=== PATIENT | male | born 1960 | race Caucasian/White ===

== ENCOUNTER 2016-10-17 09:00 | Outpatient (CLI) | payer BC, OTHER ==
[2016-10-17 09:29] LABS: #Basophils 0.1 thou/uL (0.0-0.2); #Eosinphils 0.2 thou/uL (0.0-0.7); #Lymphocytes 2.7 thou/uL (1.20-3.40); #Monocytes 0.6 thou/uL (0.11-0.59); #Neutrophils 5.1 thou/uL (1.40-6.50); %Basophils 1.5 % (0.0-1.0); %Eosinophils 2.6 % (0.0-10.0); %Lymphocytes 30.7 % (21.0-51.0); %Monocytes 6.8 % (0.0-10.0); %Neutrophils 58.4 % (42.0-75.0); Hemoglobin 15.3 g/dL (14.0-18.0); Mean Corpuscular HGB CONC 34.5 g/dL (32.0-36.0); Mean Corpuscular Hemoglobin 33.5 pg (27.0-31.0); Mean Platelet Volume 6.4 fL (7.4-10.4); Platelet Count 258 thou/uL (130-400); Red Blood Cell (RBC) Count 4.58 mill/uL (4.70-6.10); White Blood Cell (WBC) Count 8.8 thou/uL (4.8-10.8)
[2016-10-17 09:42] LABS: ALT (SGPT) 33 U/L (8-55); AST (SGOT) 26 U/L (5-34); Albumin 4.5 g/dL (3.5-5.0); Alkaline Phosphatase 41 U/L (40-150); Anion Gap 16 mmol/L (10-20); BUN (Urea Nitrogen) 13 mg/dL (8.4-25.7); Bilirubin, Total 0.5 mg/dL (0.2-1.2); Calc. Creatinine Clearance 0 mL/min (70-130); Calcium 9.3 mg/dL (7.8-10.44); Carbon Dioxide 24 mmol/L (22-29); Cardiac Risk 7.9 (Less than 4.5); Chloride 103 mmol/L (98-107); Cholesterol 212 mg/dl (< 200 Desired); Estimated GFR-MDRD 89; Globulin 2.9 g/dL (2.4-3.5); Glucose 101 mg/dL (70-105); HDL Cholesterol 27 mg/dL (>60 Neg Risk); Potassium 4.1 mmol/L (3.5-5.1); Protein, Total 7.4 g/dL (6.0-8.3); Sodium 139 mmol/L (136-145); Triglycerides 809 mg/dL (Less than 150)
[2016-10-17 17:26] LABS: Albumin (w/Testosterone Panel) 4.6 g/dL
[2016-10-17 17:51] LABS: Sex Hormone Binding Globulin 25.2 nmol/L (11-78); Testosterone, Free 67.6 pg/mL (47-244); Testosterone, Total 307.1 ng/dL (221-716)
== END 2016-10-17 09:01 ==
LOC: MADLABBHPM 09:00
PROVIDERS: ATTEND Family Medicine
DX: E78.5 Hyperlipidemia, unspecified (principal); N52.9 Male erectile dysfunction, unspecified; I10 Essential (primary) hypertension
CPT/HCPCS: 36415; 80053; 80061; 84270; 84403; 85025

== ENCOUNTER 2019-10-21 11:09 | Outpatient (CLI) | payer SELFPAY ==
[2019-10-21 11:58] LABS: #Basophils 0.1 thou/uL (0.0-0.2); #Eosinphils 0.3 thou/uL (0.0-0.7); #Lymphocytes 2.5 thou/uL (1.20-3.40); #Monocytes 0.5 thou/uL (0.11-0.59); #Neutrophils 3.4 thou/uL (1.40-6.50); %Eosinophils 4.1 % (0.0-10.0); %Monocytes 6.8 % (0.0-10.0); %Neutrophils 50.1 % (42.0-75.0); Hemoglobin 14.5 g/dL (14.0-18.0); Mean Corpuscular HGB CONC 32.1 g/dL (32.0-36.0); Mean Corpuscular Hemoglobin 31.2 pg (27.0-31.0); Mean Corpuscular Volume 97.2 fL (78.0-98.0); Mean Platelet Volume 6.8 fL (7.4-10.4); Platelet Count 318 thou/uL (130-400); RBC Distribution Width 11.7 % (11.5-14.5); Red Blood Cell (RBC) Count 4.66 mill/uL (4.70-6.10); White Blood Cell (WBC) Count 6.8 thou/uL (4.8-10.8)
[2019-10-21 12:41] LABS: ALT (SGPT) 38 U/L (8-55); AST (SGOT) 34 U/L (5-34); Albumin 4.6 g/dL (3.5-5.0); Alkaline Phosphatase 32 U/L (40-110); Anion Gap 15 mmol/L (10-20); BUN (Urea Nitrogen) 12 mg/dL (8.4-25.7); Bilirubin, Total 0.5 mg/dL (0.2-1.2); Calc. Creatinine Clearance 0 mL/min (70-130); Calcium 9.2 mg/dL (7.8-10.44); Carbon Dioxide 23 mmol/L (22-29); Chloride 105 mmol/L (98-107); Cholesterol 183 mg/dl (< 200 Desired); Estimated GFR-MDRD 79; Globulin 3.1 g/dL (2.4-3.5); Glucose 91 mg/dL (70-105); HDL Cholesterol 23 mg/dL (>60 Neg Risk); Potassium 4.2 mmol/L (3.5-5.1); Protein, Total 7.7 g/dL (6.0-8.3); Sodium 139 mmol/L (136-145); Triglycerides 530 mg/dL (Less than 150)
[2019-10-21 13:34] LABS: LDL Cholesterol, Calculated 54 mg/dL
[2019-10-21 21:22] LABS: Hemoglobin A1c 5.3 % (4.0-6.0)
== END 2019-10-21 11:10 | disposition home or self-care (01) ==
LOC: MADLAB 11:09
PROVIDERS: ATTEND Family Medicine
DX: Z13.9 Encounter for screening, unspecified (principal); E78.5 Hyperlipidemia, unspecified; I10 Essential (primary) hypertension
CPT/HCPCS: 36415; 80053; 80061; 83036; 85025